=== PATIENT | female | born 1985 | race African-American/Black ===

== ENCOUNTER 2017-06-28 10:32 | Emergency (ER) | payer OTHER | END 2017-06-28 12:11 | disposition home or self-care (01) | LOC: NEPK 10:32 | DX: M94.0 Chondrocostal junction syndrome [Tietze] (principal); R05 Cough; F31.9 Bipolar disorder, unspecified | CPT/HCPCS: 71045; 87804; 87804-59; 99283 ==

== ENCOUNTER 2017-07-05 04:21 | Emergency (ER) | payer SELFPAY ==
[~2017-07-05] VITALS: Ht 180.3 cm; Wt 125.0 kg
[~2017-07-05 04:21] MED LIST: BENZ100 PO; CELE10TA PO; LURA80 PO; TOPA50TA7 PO
[2017-07-05 04:22] VITALS: BP 160/90; PULSE 95; RESP 18; TEMP 97.5; O2SAT 97
[2017-07-05 04:48] VITALS: BP 141/82; PULSE 84; RESP 20; O2SAT 100
[2017-07-05] MEDS ORDERED: ROBA500T PO (05:08)
[2017-07-05] MEDS ORDERED: DICL75TA PO (05:08)
--- NOTE | 2017-07-05 05:13 | PD ---
HPI Chief Complaint: Pain: Acute or Chronic Time Seen by Provider: 04:45 Travel History International Travel<30 days: No Contact w/Intl Traveler<30days: No Traveled to known affect area: No History of Present Illness HPI 31-year-old black female presents to emergency department complains of right sided back and flank pain area and patient was diagnosed with an upper respiratory tract infection last week. She was negative for the flu and had a negative chest x-ray at that time to the ER. She states that she was carrying a bag today which seemed to exacerbate the pain. She denies any numbness or tingling. No shortness of breath or wheezing. No alleviating symptoms. Exacerbated by movement. PFSH Past Medical History Asthma: No Bipolar Disorder: Yes Diabetes: No Diminished Hearing: No Gastrointestinal Disorders: Yes (gastritis) Psychiatric: Yes (Bipolar) ?: Not LMP: 06/30/17 Past Surgical History Surgical History: No Previous Surgery Social History Alcohol Use: No Tobacco Use: Yes (1/2 pack every few days) Substance Use: No Allergies-Medications (Allergen,Severity, Reaction): Coded Allergies: No Known Allergies (Unverified , 07/05/17) Reported Meds & Prescriptions Reported Meds & Active Scripts Active Robaxin (Methocarbamol) 500 Mg Tab 500 Mg PO QID Diclofenac Sodium DR (Diclofenac Sodium) 75 Mg Tabdr 75 Mg PO BID Tessalon Perles (Benzonatate) 100 Mg Cap 200 Mg PO Q8HR PRN Reported Celexa (Citalopram Hydrobromide) 10 Mg Tab 10 Mg PO DAILY Topamax (Topiramate) 50 Mg Tab 75 Mg PO HS Latuda (Lurasidone) 80 Mg Tab 80 Mg PO HS Review of Systems Except as stated in HPI: all other systems reviewed are Neg Physical Exam Narrative GENERAL: Well-developed, well-nourished in no acute distress. Nontoxic appearing. HEAD: Normocephalic, atraumatic. EYES: Pupils equal round and reactive. Extraocular motions intact. No scleral icterus. No injection or drainage. ENT: TMs clear without erythema. The external auditory canals clear. Nose: clear . Posterior pharynx is pink and moist. No tonsillar edema or exudate. Uvula midline. Airway patent. NECK: Trachea midline.Supple, nontender, moves head freely. No central bony tenderness or spasm. CARDIOVASCULAR: Regular rate and rhythm without murmurs, gallops, or rubs. RESPIRATORY: Clear to auscultation. Breath sounds equal bilaterally. No wheezes , rales, or rhonchi. GASTROINTESTINAL: Abdomen soft, non-tender, nondistended. No hepato-splenomegaly , or palpable masses. No guarding. EXTREMITIES: No clubbing, cyanosis, or edema. No joint tenderness, effusion, or edema noted. BACK: No central bony tenderness. Patient has right parascapular tenderness without deformity or crepitance. Positive spasm. No flank tenderness. Data Data Last Documented VS Vital Signs Date Time Temp Pulse Resp B/P (MAP) Pulse Ox O2 Delivery O2 Flow Rate FiO2 07/05/17 04:48 84 20 141/82 (101) 100 Room Air 07/05/17 04:22 97.5 Orders Orders Naproxen (Naprosyn) (07/05/17 05:15) Cyclobenzaprine (Flexeril) (07/05/17 05:15) Ed Discharge Order (07/05/17 05:10) MDM Medical Decision Making Medical Screen Exam Complete: Yes Emergency Medical Condition: Yes Medical Record Reviewed: Yes Differential Diagnosis MDM: High Differential diagnoses: Pneumothorax,Fracture, sprain, strain, pneumonia Narrative Course Patient's given Naprosyn 500 mg and Flexeril 10 mg by mouth. Patient's symptoms are of a myofascial etiology. Her lungs are clear. X-rays are not indicated. Diagnosis Primary Impression: Acute back pain Qualified Codes: M54.6 - Pain in thoracic spine Additional Impression: Back spasm Patient Instructions: General Instructions Additional Instructions: Rest. Ice for the next 3 days followed by heat . Flexeril and Voltaren. Follow-up with a primary care doctor in one week. Return to the ER for emergencies. Med/Other Pt SpecificInfo: Prescription(s) given Scripts Methocarbamol (Robaxin) 500 Mg Tab 500 MG PO QID for Muscle Spasm, #28 TAB 0 Refills Prov: Nery Moreno MD 07/05/[address] (Diclofenac Sodium DR) 75 Mg Tabdr 75 MG PO BID, #20 TAB 0 Refills Prov: Nery Moreno MD 07/05/17 Disposition: 01 DISCHARGE HOME Condition: Stable Dewey Hernandez Jul 05, 2017 05:13
[2017-07-05] MEDS ORDERED: CYCLOBENZAPRINE HCL 10 MG TAB PO ONE (05:15)
[2017-07-05] MEDS ORDERED: NAPROXEN 500 MG TAB PO ONE (05:15)
== END 2017-07-05 05:58 | disposition home or self-care (01) ==
LOC: NEPD 04:21
DX: M54.6 Pain in thoracic spine (principal); M62.830 Muscle spasm of back; F31.9 Bipolar disorder, unspecified; F17.200 Nicotine dependence, unspecified, uncomplicated
CPT/HCPCS: 99284